=== PATIENT | male | born 1975 | race Caucasian/White ===

== ENCOUNTER → 2019-01-27 | Outpatient (CLI) | payer OTHER ==
--- NOTE | 2019-01-28 03:34 | REP ---
Clinical: Sacroiliac joint arthropathy. Technique: Single supine view of the pelvis. Findings: The bilateral sacroiliac joints are relatively symmetric and age appropriate. Subtle periarticular sclerosis (left greater than right) cannot definitively be excluded. No effusion or osteophyte formation noted. Remainder of the osseous structures, joint spaces and surrounding soft tissues normal. Impression: Essentially age-appropriate examination although very subtle increase sclerosis to the sacroiliac joints cannot be excluded Electronically Signed by Bryan Esposito MD 01/28/2019 03:25 A
== END ==
LOC: M LAB 16:16
PROVIDERS: ATTEND Internal Medicine Rheumatology
DX: M47.818 Spondylosis without myelopathy or radiculopathy, sacral and sacrococcygeal region (principal)
CPT/HCPCS: 72170; G0463

== ENCOUNTER → 2019-02-09 | Outpatient (CLI) | payer OTHER ==
--- NOTE | 2019-02-10 09:24 | REP ---
Sacroiliac joint MRI study. Without contrast: History: Arthropathy of the bilateral sacroiliac joints. Comparison radiograph of the pelvis is from January 27, 2019. Technique: Sagittal, axial, and oblique coronal imaging planes utilized. T1 and T2-weighted scans were obtained with and without fat saturation through the sacrum and SI joints. MRI findings: Cortical and medullary bone signal intensity are normal throughout the sacrum, coccyx, and visualized bony pelvic structures. No presacral or retro sacral edema or fluid collection is seen. Sacroiliac iliac joints appear intact bilaterally. No fluid or marrow edema is seen to suggest inflammation. No perirectal fat infiltration is seen. Seminal vesicles and visualized prostate are unremarkable. The visualized lumbosacral thecal sac is unremarkable. There is some degenerative disc disease at L5-S1. There is mild facet hypertrophy at L5-S1 bilaterally as well. Impression: There is no evidence of sacroiliac arthropathy by MRI. Degenerative disc disease and facet arthropathy at L5-S1. Otherwise negative. Electronically Signed by Con Antonio MD 02/10/2019 03:28 P
== END ==
LOC: M RAD 17:41
PROVIDERS: ATTEND Internal Medicine Rheumatology
DX: M47.818 Spondylosis without myelopathy or radiculopathy, sacral and sacrococcygeal region (principal)

== ENCOUNTER 2020-11-06 18:22 | Emergency (ER) | payer OTHER ==
[~2020-11-06] VITALS: Ht 185.4 cm; Wt 92.4 kg
[2020-11-06] MEDS ORDERED: XANA0.5T PO (20:44)
[2020-11-06] MEDS ORDERED: BUSP30TA PO (20:47)
[2020-11-06 21:06] VITALS: BP 115/81
--- NOTE | 2020-11-07 19:49 | ECGEPIP ---
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
== END 2020-11-06 21:08 | disposition home or self-care (01) ==
LOC: M ED 18:22
DX: F41.0 Panic disorder [episodic paroxysmal anxiety] (principal); Z79.899 Other long term (current) drug therapy

== ENCOUNTER 2020-12-17 18:17 | Emergency (ER) | payer OTHER ==
[~2020-12-17] VITALS: Ht 185.4 cm; Wt 89.3 kg
[~2020-12-17 18:17] MED LIST: BUSP30TA PO; XANA0.5T PO
[2020-12-17] MEDS ORDERED: CELE10TA PO (18:25)
[2020-12-17 18:56] LABS: BASO % 0.4 % (0.0-1.0); EOS # 0.1 10^3/uL (0.0-0.5); EOS % 1.4 % (0.0-3.0); HEMATOCRIT 43.3 % (42.0-52.0); HEMOGLOBIN 14.8 g/dl (13.5-17.5); LYMPH # 2.8 10^3/uL (1.5-5.0); LYMPH % 27.3 % (24.0-44.0); MEAN CORPUSCULAR HEMOGLOBIN 28.9 pg (27.0-33.0); MEAN CORPUSCULAR HGB CONC 34.2 g/dl (32.0-36.5); MEAN CORPUSCULAR VOLUME 84.6 fl (80.0-96.0); MONO # 0.6 10^3/uL (0.0-0.8); MONO % 5.5 % (2.0-8.0); NEUTROPHILS # 6.7 10^3/uL (1.5-8.5); NEUTROPHILS % 64.7 % (36.0-66.0); PLATELET COUNT, AUTOMATED 369 10^3/uL (150-450); RED BLOOD COUNT 5.12 10^6/uL (4.30-6.10); WHITE BLOOD COUNT 10.4 10^3/uL (4.0-10.0)
--- NOTE | 2020-12-17 19:13 | REP ---
INDICATION: CHEST PAIN. COMPARISON: None. TECHNIQUE: Two portable AP views of the chest performed. FINDINGS: There is no acute infiltrate or pulmonary edema. Lungs are clear. The heart is not significantly enlarged. The mediastinal silhouette is unremarkable. The visualized osseous structures are intact. IMPRESSION: No acute pulmonary disease. <Electronically signed by Shawn Rdz > 12/17/20 [id number]
[2020-12-17 19:22] LABS: ALBUMIN 3.8 GM/DL (3.2-5.2); ALT/SGPT 40 U/L (12-78); BILIRUBIN,DIRECT < 0.1 MG/DL (0.0-0.2); BILIRUBIN,TOTAL 0.2 MG/DL (0.2-1.0); BLOOD UREA NITROGEN 18 MG/DL (7-18); CALCIUM LEVEL 8.9 MG/DL (8.5-10.1); CARBON DIOXIDE LEVEL 28 MEQ/L (21-32); CHLORIDE LEVEL 106 MEQ/L (98-107); CK-MB VALUE MASS 1.7 NG/ML (<3.6); CPK CREATINE PHOSPHOKINASE 176 U/L (39-308); CREATININE FOR GFR 1.28 MG/DL (0.70-1.30); GLOMERULAR FILTRATION RATE > 60.0 (>60); GLUCOSE, FASTING 116 MG/DL (70-100); LIPASE 80 U/L (73-393); MB/CK RELATIVE INDEX 0.97 (< OR =4); POTASSIUM SERUM 3.8 MEQ/L (3.5-5.1); SODIUM LEVEL 140 MEQ/L (136-145); TOTAL PROTEIN 7.2 GM/DL (6.4-8.2); TROPONIN I 0.55 NG/ML (< 0.10)
[2020-12-17] MEDS ORDERED: ASPIRIN 81 MG CHEW TABLET PO ONE (19:35)
[2020-12-17] MEDS ORDERED: HEPARIN DRIP 25,000 UNITS in IV 1 EA IV SCH (20:10)
[2020-12-17] MEDS ORDERED: CLOPIDOGREL 300 MG TAB (PLAVIX) PO ONE (20:10)
[2020-12-17] MEDS ORDERED: HEPARIN SOD (PORCINE) 5000UNITS/ML 1ML VIAL/SYRINGE IV ONE (20:10)
[2020-12-17] MEDS ORDERED: NITROGLYCERIN 0.4 MG SUBL TABLET SL PRN (21:10)
[2020-12-17 21:13] VITALS: BP 170/76
[2020-12-17 21:36] LABS: RSV AMPLIFICATION NEGATIVE (NEGATIVE)
[2020-12-17 22:09] VITALS: BP 132/60
--- NOTE | 2020-12-18 20:02 | ECGEPIP ---
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
== END 2020-12-17 22:13 | disposition short-term general hospital (02) ==
LOC: M ED 18:17
DX: I21.4 Non-ST elevation (NSTEMI) myocardial infarction (principal); R00.0 Tachycardia, unspecified; F41.9 Anxiety disorder, unspecified; F17.220 Nicotine dependence, chewing tobacco, uncomplicated; Z79.899 Other long term (current) drug therapy
CPT/HCPCS: 71045; 80048; 80076; 82550; 82553; 83690; 84484; 85025; 85379; 87631; 93005; 93041; 94760; 96365; 99285; J1644

== ENCOUNTER 2020-12-20 10:42 | Emergency (ER) | payer OTHER ==
[~2020-12-20] VITALS: Ht 185.4 cm; Wt 90.6 kg
[~2020-12-20 10:42] MED LIST changes: +CELE10TA PO
[2020-12-20 11:16] LABS: BASO % 0.4 % (0.0-1.0); EOS % 0.4 % (0.0-3.0); HEMATOCRIT 45.3 % (42.0-52.0); HEMOGLOBIN 15.5 g/dl (13.5-17.5); LYMPH # 1.6 10^3/uL (1.5-5.0); LYMPH % 16.3 % (24.0-44.0); MEAN CORPUSCULAR HEMOGLOBIN 28.7 pg (27.0-33.0); MEAN CORPUSCULAR HGB CONC 34.2 g/dl (32.0-36.5); MEAN CORPUSCULAR VOLUME 83.9 fl (80.0-96.0); MONO # 0.8 10^3/uL (0.0-0.8); MONO % 7.7 % (2.0-8.0); NEUTROPHILS # 7.4 10^3/uL (1.5-8.5); NEUTROPHILS % 74.5 % (36.0-66.0); PLATELET COUNT, AUTOMATED 367 10^3/uL (150-450); WHITE BLOOD COUNT 9.9 10^3/uL (4.0-10.0)
[2020-12-20 11:45] LABS: BLOOD UREA NITROGEN 18 MG/DL (7-18); CALCIUM LEVEL 9.2 MG/DL (8.5-10.1); CARBON DIOXIDE LEVEL 29 MEQ/L (21-32); CHLORIDE LEVEL 103 MEQ/L (98-107); CPK CREATINE PHOSPHOKINASE 98 U/L (39-308); CREATININE FOR GFR 1.07 MG/DL (0.70-1.30); GLOMERULAR FILTRATION RATE > 60.0 (>60); GLUCOSE, FASTING 102 MG/DL (70-100); MB/CK RELATIVE INDEX 1.02 (< OR =4); POTASSIUM SERUM 4.1 MEQ/L (3.5-5.1); SODIUM LEVEL 138 MEQ/L (136-145); TROPONIN I 0.02 NG/ML (< 0.10)
--- NOTE | 2020-12-20 11:57 | REP ---
INDICATION: CHEST PAIN. COMPARISON: 12/17/2020. TECHNIQUE: Single portable AP view of the chest was performed. FINDINGS: There is no acute infiltrate or pulmonary edema. Lungs are clear. The heart is not significantly enlarged. The mediastinal silhouette is unremarkable. The visualized osseous structures are intact. IMPRESSION: No acute pulmonary disease. <Electronically signed by Shawn Rdz > 12/20/20 [id number]
[2020-12-20 13:41] LABS: CK-MB VALUE MASS < 1.0 NG/ML (<3.6); CPK CREATINE PHOSPHOKINASE 87 U/L (39-308); MB/CK RELATIVE INDEX 1.15 (< OR =4); TROPONIN I 0.02 NG/ML (< 0.10)
[2020-12-20 14:46] VITALS: BP 113/63
--- NOTE | 2020-12-21 18:56 | ECGEPIP ---
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
--- NOTE | 2020-12-21 18:57 | ECGEPIP ---
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
== END 2020-12-20 14:48 | disposition home or self-care (01) ==
LOC: M ED 10:42
DX: F41.0 Panic disorder [episodic paroxysmal anxiety] (principal); F32.9 Major depressive disorder, single episode, unspecified; F43.10 Post-traumatic stress disorder, unspecified; F17.220 Nicotine dependence, chewing tobacco, uncomplicated; Z79.899 Other long term (current) drug therapy

== ENCOUNTER 2021-02-21 17:00 | Emergency (ER) | payer OTHER ==
[~2021-02-21] VITALS: Ht 185.4 cm; Wt 88.3 kg
--- OUTSIDE RECORDS SUMMARY | 2021-02-21 17:09 | CCD ---
Author Author [facility] Organization [facility] Address Unknown Phone Unavailable Care Team Providers Care Drug And Alcohol Counsellor Name Role Phone Zenon CURIEL JR, MD Unavailable Unavailable Zenon CURIEL JR, MD Unavailable Unavailable Zenon CURIEL JR, MD Unavailable Unavailable Zenon CURIEL JR, MD Unavailable Unavailable Zenon CURIEL JR, MD Unavailable Unavailable Zenon CURIEL JR, MD Unavailable Unavailable Zenon CURIEL JR, MD Unavailable Unavailable Zenon CURIEL JR, MD Unavailable Unavailable Zenon CURIEL JR, MD Unavailable Unavailable Zenon CURIEL JR, MD Unavailable Unavailable Zenon CURIEL JR, MD Unavailable Unavailable Zenon CURIEL JR, MD Unavailable Unavailable Zenon CURIEL JR, MD Unavailable Unavailable Zenon CURIEL JR, MD Unavailable Unavailable Zenon CURIEL JR, MD Unavailable Unavailable Zenon CURIEL JR, MD Unavailable Unavailable Zenon CURIEL JR, MD Unavailable Unavailable Zenon CURIEL JR, MD Unavailable Unavailable Zenon CURIEL JR, MD Unavailable Unavailable Zenon CURIEL JR, MD Unavailable Unavailable Zenon CURIEL JR, MD Unavailable Unavailable Zenon CURIEL JR, MD Unavailable Unavailable Zenon CURIEL JR, MD Unavailable Unavailable Zenon CURIEL JR, MD Unavailable Unavailable Zenon CURIEL JR, MD Unavailable Unavailable Zenon CURIEL JR, MD Unavailable Unavailable Zenon CURIEL JR, MD Unavailable Unavailable Zenon CURIEL JR, MD Unavailable Unavailable Zenon CURIEL JR, MD Unavailable Unavailable Zenon CURIEL JR, MD Unavailable Unavailable Zenon CURIEL JR, MD Unavailable Unavailable Zenon CURIEL JR, MD Unavailable Unavailable CARZenon GROVER JR, MD Unavailable Unavailable CARZenon GROVER JR, MD Unavailable Unavailable CARHART Zenon LIU MD Unavailable Unavailable CARHART Zenon LIU MD Unavailable Unavailable CARKRYSTALT Zenon LIU MD Unavailable Unavailable CARKRYSTALT Zenon LIU MD Unavailable Unavailable CARHART Zenon LIU MD Unavailable Unavailable CARZenon GROVER JR, MD Unavailable Unavailable CARZenon GROVER JR, MD Unavailable Unavailable CARZenon GROVER JR, MD Unavailable Unavailable CARZenon GROVER JR, MD Unavailable Unavailable CARZenon GROVER JR, MD Unavailable Unavailable CARZenon GROVER JR, MD Unavailable Unavailable CARZenon GROVER JR, MD Unavailable Unavailable CARZenon GROVER JR, MD Unavailable Unavailable CARZenon GROVER JR, MD Unavailable Unavailable CARZenon GROVER JR, MD Unavailable Unavailable CARZenon GROVER JR, MD Unavailable Unavailable CARZenon GROVER JR, MD Unavailable Unavailable CARZenon GROVER JR, MD Unavailable Unavailable CARZenon GROVER JR, MD Unavailable Unavailable CARZenon GROVER JR, MD Unavailable Unavailable CARZenon GROVER JR, MD Unavailable Unavailable CARZenon GROVER JR, MD Unavailable Unavailable CARZenon GROVER JR, MD Unavailable Unavailable Zenon CURIEL JR, MD Unavailable Unavailable CARZenon GROVER JR, MD Unavailable Unavailable CARZenon GROVER JR, MD Unavailable Unavailable CARZenon GROVER JR, MD Unavailable Unavailable CARZenon GROVER JR, MD Unavailable Unavailable CARZenon GROVER JR, MD Unavailable Unavailable CARZenon GROVER JR, MD Unavailable Unavailable CARZenon GROVER JR, MD Unavailable Unavailable CARZenon GROVER JR, MD Unavailable Unavailable CARZenon GROVER JR, MD Unavailable Unavailable CARZenon GROVER JR, MD Unavailable Unavailable CARZenon GROVER JR, MD Unavailable Unavailable CARZneon GROVER JR, MD Unavailable Unavailable CARZenon GROVER JR, MD Unavailable Unavailable CARZenon GROVER JR, MD Unavailable Unavailable CARZenon GROVER JR, MD Unavailable Unavailable CARZenon GROVER JR, MD Unavailable Unavailable CARZenon GROVER JR, MD Unavailable Unavailable CARZenon GROVER JR, MD Unavailable Unavailable CARZenon GROVER JR, MD Unavailable Unavailable CARZenon GROVER JR, MD Unavailable Unavailable CARZenon GROVER JR, MD Unavailable Unavailable CARZenon GROVER JR, MD Unavailable Unavailable CARZenon GROVER JR, MD Unavailable Unavailable CARZenon GROVER JR, MD Unavailable Unavailable CARHART JR, L CLEMENTE MD Unavailable Unavailable CARHART JR, L CLEMENTE MD Unavailable Unavailable CARHART JR, L CLEMENTE MD Unavailable Unavailable CARHART JR, L CLEMENTE MD Unavailable Unavailable CARHART JR, L CLEMENTE MD Unavailable Unavailable CARHART JR, L CLEMENTE MD Unavailable Unavailable PAULRAJ, YOLANDA Unavailable Unavailable Re-disclosure Warning The records that you are about to access may contain information from federally-assisted alcohol or drug abuse programs. If such information is present, then the following federally mandated warning applies: This information has been disclosed to you from records protected by federal confidentiality rules (42 CFR part 2). The federal rules prohibit you from making any further disclosure of this information unless further disclosure is expressly permitted by the written consent of the person to whom it pertains or as otherwise permitted by 42 CFR part 2. A general authorization for the release of medical or other information is NOT sufficient for this purpose. The Federal rules restrict any use of the information to criminally investigate or prosecute any alcohol or drug abuse patient.The records that you are about to access may contain highly sensitive health information, the redisclosure of which is protected by Article 27-F of the [facility] Public Health law. If you continue you may have access to information: Regarding HIV / AIDS; Provided by facilities licensed or operated by the [facility] Office of Mental Health; or Provided by the [facility] Office for People With Developmental Disabilities. If such information is present, then the following [facility] mandated warning applies: This information has been disclosed to you from confidential records which are protected by state law. State law prohibits you from making any further disclosure of this information without the specific written consent of the person to whom it pertains, or as otherwise permitted by law. Any unauthorized further disclosure in violation of state law may result in a fine or residential sentence or both. A general authorization for the release of medical or other information is NOT sufficient authorization for further disc losure. Allergies and Adverse Reactions Type Description Substance Reaction Status Data Source(s ) Propensity to adverse reactions NO KNOWN ALLERGIES NO KNOWN ALLERGIES [facility] Family History Family Member Name Family Member Gender Family Member Status Date o f Status Description Data Source(s) Unknown Male Problem [facility] ([facility]) Encounters Encounter Providers Location Date Indications Data Source(s ) Inpatient Attender: CLEMENTE SARAVIA dmitter: CLEMENTE CURIEL JRReferrer: YOLANDARADHA PATTERSON [id number] 12/17/2020 12:00:00 AM EDT - 12/19/2020 04:22:00 PM EDT [facility] Patient discharged. Medications No Information Insurance Providers Payer name Policy type / Coverage type Policy ID Covered libertarian ID Covered libertarian's relationship to segura Policy Segura Plan Information [employer] [id number] SP [id number] U [id number] Self [id number] [facility] HUMAN [id number] SP [id number] [facility] [id number] Self [id number] [place] [employer] [employer] [id number] Self [id number] [facility] - O/P [id number] Problems, Conditions, and Diagnoses No Information Surgeries/Procedures No Information Results ID Date Data Source [id number] 12/23/2020 01:38:10 PM EDT [facility] Name Value Range Interpretation Code Description Data Karina rce(s) Supporting Document(s) Discharge Summary [facility] [id number] [facility] [file] [id number] ID Date Data Source [id number] [facility] Interpretation Code Description Data Karina rce(s) Supporting Document(s) Heparin unfractionated [Units/volume] in Platelet poor plasma by Chromogenic method 0.18 [facility] Data Source [id number] [facility] Value Range Interpretation Code Description Data Karina rce(s) Supporting Document(s) Heparin unfractionated [Units/volume] in Platelet poor plasma by Chromogenic method 0.45 U/ml [facility] ID Date Data Source [id number] 12/19/2020 04:15:01 AM [facility] Value Range Interpretation Code Description Data Karina rce(s) Supporting Document(s) Prothrombin time (PT) 13.1 s 11.6-14.0 [facility] INR in Platelet poor plasma by Coagulation assay 1.03 [facility] Routine intensity oral anticoagulation I NR is typically 2.0-3.0. Target INR must be clinically individualized. ID Date Data Source [id number] 12/18/2020 09:05:54 PM [facility] Value Range Interpretation Code Description Data Karina rce(s) Supporting Document(s) Prothrombin time (PT) 13.5 s 11.6-14.0 [facility] INR in Platelet poor plasma by Coagulation assay 1.07 [facility] Routine intensity oral anticoagulation I NR is typically 2.0-3.0. Target INR must be clinically individualized. ID Date Data Source [id number] 12/18/2020 09:05:54 PM [facility] Value Range Interpretation Code Description Data Karina rce(s) Supporting Document(s) Heparin unfractionated [Units/volume] in Platelet poor plasma by Chromogenic method 0.59 U/ml [facility] ID Date Data Source [id number] 12/18/2020 04:48:38 PM EDT [facility] Name Value Range Interpretation Code Description Data Karina rce(s) Supporting Document(s) History and Physical [facility] ITAYFj3kYzFPQmGf73/BTHcbMWLlg0ElGKvhUUe4JBkaLFXaJ2PkHOC1pC2bQSL8JSgHPaRyCaVpJVFh lbm [file] AgICAgICAgICAgICAgICAgICAgICAgICAgICAgICAgICAgICAgICAgICAgICAgICAgICAgICAgICAgIC AgICAgICAgICAgICAgICAgICAgDQogICAgICAgICAgICAgICAgICAgICAgICAgICAgICAgICAgICAgIC AgICAgICAgICAgICAgICAgICAgICAgICAgICAgICAg ICAgICAgICAgICAgICAgICAgICAgICAgICAgICAgDQogICAgICAgICAgICAgICAgICAgICAgICAgICAg ICAgICAgICAgICAgICAgICAgICAgICAgICAgICAgICAgICAgICAgICAgICAgICAgICAgICAgICAgICAg ICAgICAgICAgICAgDQogICAgICAgICAgICAgICAgIC AgICAgICAgICAgICAgICAgICAgICAgICAgICAgICAgICAgICAgICAgICAgICAgICAgICAgICAgICAgIC AgICAgICAgICAgICAgICAgICAgICAgDQogICAgICAgICAgICAgICAgICAgICAgICAgICAgICAgICAgIC AgICAgICAgICAgICAgICAgICAgICAgICAgICAgICAg ICAgICAgICAgICAgICAgICAgICAgICAgICAgICAgICAgDQogICAgICAgICAgICAgICAgICAgICAgICAg ICAgICAgICAgICAgICAgICAgICAgICAgICAgICAgICAgICAgICAgICAgICAgICAgICAgICAgICAgICAg ICAgICAgICAgICAgICAgDQogICAgICAgICAgICAgIC AgICAgICAgICAgICAgICAgICAgICAgICAgICAgICAgICAgICAgICAgICAgICAgICAgICAgICAgICAgIC AgICAgICAgICAgICAgICAgICAgICAgICAgDQogICAgICAgICAgICAgICAgICAgICAgICAgICAgICAgIC AgICAgICAgICAgICAgICAgICAgICAgICAgICAgICAg ICAgICAgICAgICAgICAgICAgICAgICAgICAgICAgICAgICAgDQogICAgICAgICAgICAgICAgICAgICAg ICAgICAgICAgICAgICAgICAgICAgICAgICAgICAgICAgICAgICAgICAgICAgICAgICAgICAgICAgICAg ICAgICAgICAgICAgICAgICAgDQogICAgICAgICAgIC AgICAgICAgICAgICAgICAgICAgICAgICAgICAgICAgICAgICAgICAgICAgICAgICAgICAgICAgICAgIC PzPEOaRHBtJNHgDTDmGBCnHRIrNGUgPTLsLDQrTIa6M0ptRJWxGZJuEB0zWEf3Wv5+HAoRWrEmNKJ9zd JdwF8RHP0nj0KpFZrvRWYey3HjBSr0FJ5YAGRoKHcj VP7CXDcoez5CPSNuFGBduERAt8jcPcXbXKE4SUTtHvtdNF7ZSCCsJ8iyoeIaKDVtUKGTWVrcYHKIIFmo RWFZVJLdPBSfDuQzCFwsLE4Yv7BjtUN7FWq+Ap4FKP6at9VkHCzsVNMbDO8gxg9UPGxCEvTbK6ZzbkC5 FMDhROGcFv3YVGCgMBZwxMDpFJFaSXIQAlGqF3NsnW 44GCGUBi1+DLwihdVzHbrAKgLhLLCvf3NeTSy7WC9FEPInGMv8kYWrFXLGAUS1LS3txcQdckDkIE9zqY JkVZ8HXrRzWBTqKT9sQl0fMDQhGLYpOaSaNNTCFA7ODIWhHXFoqGSwXTFqPWCMFF2DUJooLPY6PIGcjn FgcOScAWhkHG0VQPIeslZqApnfTVBSEBp+Ax4CMO5x a3PsTGwrUsMaFF0nvi5SDIsYWnMrD6R3dXZfC5Gymb96IG7VkAU0cBWgDC8WpS6iSR9Ye0SfRJOhCjKb YJVzCMNyAGAyATJlNuCbFF1SWBWfDiJugNUuWPZfRcXzYSCqYDP8KXkrBU8KDPCsMLB7AW0OGH5QNvti A3XFXYyNcIdpTIL4OkWUW46SKPHHJV5YRZTQWWltQL G2nwGjqmWhdqeVCpYqQBKQF62GQSJFMWA+PiANCj4+EBaybzHvAcvPWrXnZKSrm6QhPIu5HK5QLKYpLW aoNA7MSKEwdN9yPBosQP5TSnOrBkQaAOIZRsAjP06aqSOoDEm3Y9IvNxQaDLSgDmuvQVHbQDvqSkUiIM MgWyBdDQogID4+ID4+ZKzjAF6AYNpzqgMaSFZbQe9A GYNjJQIkSQ6aTMKsCKOqI7L2eLyoBPCGLrXrV3xnoszpPB9pPZTdT061sNgehbInPVY8UZQkTw6MWEZr ARB2RIZogQPkFpiyEBTVZGiiTK6ReNWtJGG8bA6iCPodSWHdWKIiQ2lQQnYzrPprJF57mKoviwTafFIy DQo+Nm9DZH6ax2NoYPj6coOyJWecQWTvUXdjRGKjGV HhSTLkRPM4DRK9ICSOAnIsTHHpNCNoWDzmSZFnHVOfer2MGDIlZLOvWPK2EhXzLUXjJWRkSNclSBOqTP WwYWSiNZMdEGAnFK9JVgPpSDUfEXGgFDxeRYSrFSObpt5WSYRwQHSmPVF4TjWvWJVwVRHgDEilBRToOD U1BfkqXOCxWFCbWW8IAaGqSPGiVAf7OsywFNSjYPZz fb4PCOPqZSCtFwf6ZiEpEXTbKHEuLEcpPSDeSDAuHYR9FLAdTASzFB1QYjLhQSUyOAItSnBqXRUjBZAy cs6BAEWfGQBdESZ9TtXjOROgBNYmCIveQSIoNJHtDeJ1CLYrTSZiNT0ZLvNdJOBbQXJxTOalSMLqDTXl us7KORHfFOYeVUC3VYOtFVIuDVPvLKhkORYnATH8VI b8PGFqHUVlRG6CSvZtVSAoMTQ9EGwaSCEcXEVcfo1MUGZwRNHcHhVdWIJcPITgOEKyLMwsGQSiBOO2TD PlSQWaJBMtFZ1MJmUqPZAaBCttAAawTITzWIXwrv6GFWXaDMUoKfx1DHMdPDMzMPXbUIklXYEeJWU7LG O5GZLoBDAiOR4CHeEfGMCySJqtCFemRKXyNAXzas3C EKJvAVEbBRegFfGeHMEaSCWpULtdHMIsTHRcAIInAZWcIYRuNC2QMxNeBIXcDwVkPqAtJXCzESUnis6E DALmPLRxOUU9LXGpBRRzRAGgJTluDEUeXCUqIjS2WIAwUDFxRI7NDiRhKJSsLpOwOfNnDKHlEPOoug9I MDAwMDAzMjUxOSAwMDAwMCBuDQowMDAwMDMyNTkwID IbMJWjQR4EYyTpQROvZqG5BSonWEYcQUDgnj1WvNQoiWdemh4TIOlFTh0UhQcnLHLpTLymCb1tgOFhHD UiMPCGSr0MayQgUZPtXLWZMUglTGZrITOaNbpzXalgV9R1TELyEWVxM8KwPBegQSMxLpLqXtXcDiE7NP XwI2GuPVXdZLvmBZQ8UiEuRsWzNZA2FEY3EUYiCYY+ OU4rLKy+By8Ra0HqtfX9djMlXKcaBtB2FB9FADGPQ3GXBd== ID Date Data Source [id number] [facility]43[facility] Value Range Interpretation Code Description Data Karina rce(s) Supporting Document(s) Cardiactroponin T pnl SerPlHS 70 ng/L <22 H [facility] ID Date Data Source [id number] 12/18/2020 01:33:49 [facility] Value Range Interpretation Code Description Data Karina rce(s) Supporting Document(s) Heparin unfractionated [Units/volume] in Platelet poor plasma by Chromogenic method 0.19 U/ml [facility] ID Date Data Source [id number] [facility]2020 10:[facility] Range Interpretation Code Description Data Karina rce(s) Supporting Document(s) EKG [facility] IUDVAc3cZuVKIkRhn0IrKwHgKDBlRS5gakd5Y0V4kQLgU6CfdAPbt8rqT9MeE6LaXNIxFWMNWR3OfQLu jb2 [file] /dv/4mP3w/f+2Bdfvv/t6ye8++wf/4sPSdsfevvq/buvP//q4C4rY848+/TrTz//inez//M27n/7TKr11 /9Nnf/rh37/78x+//cPbv/0u12vqnw/9N3/+87fffP/3b7/10jshsa7+7V//m8S//n1ex415h06N/cWi OY4KBfMyb/i0y01L54isf7+t+h//+Iu/sC8v3SKdhj A/gp660A1+HtyuX/4nrGxa1ITrH5r/MICudjXnq/EKd6kW9ZasypoOw1UblT89lFej73+8Yu8x0v+8// shx81cq4O0brlkv9//92ahL4943ePp/eb9p//0o1Dbj/7tUPzL+/+K2MM1/3WtCz+nxy+/IsOrgskBB0 QHUkrWai81m3/+w9ufv/nrtz/02akd9B9M9hbd+iMP 0PIeTIb+9Ns3+NX7t+9++Ou3f/7ff/Pj8+s3nz/++fzlubE0f972qn21/Ye3P/zH67d/75cqgja4w7rd T74+v+LB/vnjL/754++Lh63lIksJhS/S2i4nGWlPueFeoV/85Mc/sUgwmB2k/4uf/omXfsZs6c//+PbN //b3O5365DbZBtDzu557/gd6TDJDptg0aP9yu//6dz /59D4Ov/3m+x8d3/kj9LNv/uP33/zlu29++Mn/b6ZH++6Hn/7/cyVN//7f/vZ/Hwrf/+lPf/zkul/Sfv KRHe9v/jN0I7K9Gr00O1ic//7Ax29//z9/+O73r5/5bEij60h5D53cOMSiq0/56+us+8Mnn/404WiBT9 36+Rd/u9/1wF6Bf/ht39838eSWT5qq6m+i//9H7tcO fRt1Y/zqm//x7Zu8/ciy01xRHSyx85nl4i6p7WHb6s5ViGc274sWi+Om7h9PhR/f/+rd+0/eVmOCVXbw 088++/J3X7w+2+4KB+Mhn8C64A8HoHY83PlweiUayPVwBO4ZZA8yq0AqDwN7QKOcv3DrCApyGEx8uSCh VXgbqzJjy7JppolxK6Dff8ErOsSvVMIbGgAlLnz1FU MaWrL7hEZoWdEiTIOeK0GzAZWhZlL9MwEyITEDLG4FLOQsufXmWpNpTAY+QsZtKF1bfpleKQUfb3MpAX whUFmlVREpG2G6eLvqUDLeW8SfjV01EEMdM5UaxhK2VNK3NSVqIsWoUQJqaIRpONZcAHE+DsWrPC4apk nxRMKjj3CzHVecCHJ6qY4uERvPLGRSVJsRGVzfWxV3 s13vgjVHPMCbNWFzRP3UlpSxvIhnqbZnjPPxKIW1WaJpICI8MCUtRXYvMIFJGHXjYKEiTYRuBTTqG6Ik vMcyEEhJLBXGYLgUWZkeKpZqs4O9FNWatiRLPBXWSIyjPlZTM20bJhr0EWM0JSyfH9C6TggmB6GtDP4F N1NsHTElJFZWFVPxdgZoHS7AxpQkvG0tBVzCLHWPXR xHNEueYzI9w32ktoCFXSUmOSBsKMeiDUHeVKMlWTAtUMHdDHQhAGOoFWHvZA1MD3LjVTQrOXXMPOL6r7 RdAXNsyivwfmnfBj2dvwAxIkm+JfwpEHZfn4DjSGfbP6Z0oFHqC8AvO3ShCD5IpVGdWFpgIIHgRQZoLE PfM148ubCsCJ7+DE3xd5XlTwjiEEZGUVVcXWZlIBKt UNM1YvKtMJWpZHWtVCBwGaR4EoYeHrKNCLXdDJC9NtX1ZiJuARJhFSRsHTtsYMQpKBFcCSI4DVCfCHQq FB4oIuPqXNYwYiN1FYHtAHKpAKLvuqYKSLZwZZSfKLKaAJO9BTLeOSOzCCaiGUPpBOSjIID7OJPbSYQo BN7aIdMmEYYxDZRlJvrwNQXiTQBzwxMXGXKmWIFlZQ C4FeXyVXCuAYXnLNhvJKZeNFSeEyi9LQGdDWGrVR8mShWgQPJdCRT0JLmeDBHgEIWutgXHPODqOUHvOK ThScPpRRLeTCNhUQsvOMHmSAHqKqPvGEMxPOXnGK9fUwXhIHVnQOH6BYXiMDTaMFOmyvBGSHQlWDBpXQ h8APEjZMQyXGAmYLziCQJnDJWmGWI5PAYtLUBdBG6c FgHdOVFmDGLfJPDlATBgHAEsvtQWONRhIZUxNVX1WJBdKXBwSZRvAYyvNREfIZRfZyz4ZNIpVPJsSQ8e EkGhRKFaXXS5HEExEUHmKMWncuJTLSOgGRR1WewcINPnXQVzTLHzTTymDWZiWFSgCaU3MORwQVDnRV9k CvVdSKOwUOE1TaAlFOHeLPLehtUHWYEcDPVqTYP5Ls DsMAMsSWFkSZgoXFUdBNUgPLOqPER8DES8WXLpRbZeDNyuXJMEKTmKI3TokrGcRaBEF8mxCu8bXaHhVI VTW0Yxg9QuKPWiEHAOVw7+DoF5NYA1rJRnTmn9DfGcBjhtZBZCYe== ID Date Data Source [id number] 12/18/2020 04:38:31 AM EDT [facility] Name Value Range Interpretation Code Description Data Karina rce(s) Supporting Document(s) Cardiactroponin T pnl SerPlHS 89 ng/L <22 H [facility] ID Date Data Source [id number] 12/18/2020 04:19:[facility] Value Range Interpretation Code Description Data Karina rce(s) Supporting Document(s) Leukocytes [#/volume] in Blood by Automated count 11.5 10*3/uL 4-10 H [facility] Erythrocytes [#/volume] in Blood by Automated count 5.03 10*6/uL 4.6- 6.1 [facility] Hemoglobin [Mass/volume] in Blood 14.4 g/dL 13.5-18 [facility] Hematocrit [Volume Fraction] of Blood by Automated count 42.6 % 4 1-53 [facility] Erythrocyte mean corpuscular volume [Entitic volume] by Auto mated count 84.6 fL 80-96 [facility] Erythrocyte mean corpuscular hemoglobin [Entitic mass] by Automated count 28.5 pg 27-33 [facility] Erythrocyte mean corpuscular hemoglobin concentration [Mass/volume] by Automated count 33.7 g/dL 32.0-36.0 [facility] Erythrocyte distribution width [Ratio] by Automated count 13.5 % 11.5-14.5 [facility] Platelets [#/volume] in Blood by Automated count 355 10*3/uL 150-400 [facility] ID Date Data Source [id number] 12/18/2020 04:19:[address] [facility] Value Range Interpretation Code Description Data Karina rce(s) Supporting Document(s) Prothrombin time (PT) 13.0 s 11.6-14.0 [facility] INR in Platelet poor plasma by Coagulation assay 1.02 [facility] Routine intensity oral anticoagulation I NR is typically 2.0-3.0. Target INR must be clinically individualized. ID Date Data Source [id number] 12/18/2020 04:19:[address] [facility] Value Range Interpretation Code Description Data Karina rce(s) Supporting Document(s) Heparin unfractionated [Units/volume] in Platelet poor plasma by Chromogenic method [facility] ID Date Data Source [id number] 12/18/2020 01:14:[facility] Value Range Interpretation Code Description Data Karina rce(s) Supporting Document(s) SARS-CoV-2 RNA 2019 nCoV Real-Time RT-PCR: NOT DETECTED [facility] This lab was ordered by [facility] and reported by [facility]. 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 [facility] Patient has symptoms related to condition [facility] When did you start to experience these symptoms [Date and time] [Phen X] [facility] Patient was hospitalized because of this condition [facility] patient was admitted to ICU for [facility] Patient resides in a congregate care setting [facility] status [facility] ID Date Data Source [id number] 12/18/2020 02:09:31 AM [facility] Value Range Interpretation Code Description Data Karina rce(s) Supporting Document(s) Cardiactroponin T pnl SerPlHS 97 ng/L <22 H [facility] ID Date Data Source [id number] 12/18/2020 02:09:31 AM [facility] Value Range Interpretation Code Description Data Karina rce(s) Supporting Document(s) Magnesium [Mass/volume] in Serum or Plasma 2.2 mg/dL 1.6-2.6 [facility] ID Date Data Source [id number] 12/18/2020 02:09:31 AM [facility] Value Range Interpretation Code Description Data Karina rce(s) Supporting Document(s) Phosphate [Mass/volume] in Serum or Plasma 4.6 mg/dL 2.5-4.5 H [facility] ID Date Data Source [id number] 12/18/2020 02:09:31 AM [facility] Value Range Interpretation Code Description Data Karina rce(s) Supporting Document(s) Cholesterol [Mass/volume] in Serum or Plasma 166 mg/dL <200 [facility] Triglyceride [Mass/volume] in Serum or Plasma 144 mg/dL <150 [facility] Cholesterol in HDL [Mass/volume] in Serum or Plasma 40 mg/dL >40 L [facility] Cholesterol in LDL [Mass/volume] in Serum or Plasma by calcu lation 97 mg/dL <100 [facility] Cholesterol in VLDL [Mass/volume] in Serum or Plasma by calc ulation 29 mg/dl 16-42 [facility] Cholesterol non HDL [Mass/volume] in Serum or Plasma 126 mg/dL <130 [facility] ID Date Data Source [id number] 12/18/2020 02:09:31 AM [facility] Name Value Range Interpretation Code Description Data Karina rce(s) Supporting Document(s) Albumin [Mass/volume] in Serum or Plasma by Bromocresol green (BCG) dye binding method 4.1 g/dL 3.5-5.2 [facility] Bilirubin.total [Mass/volume] in Serum or Plasma 0.2 mg/dL <1.2 [facility] Bilirubin.direct [Mass/volume] in Serum or Plasma <0.3 [facility] Alkaline phosphatase [Enzymatic activity/volume] in Serum or Plasma 42 U/L 40-129 [facility] Aspartate aminotransferase [Enzymatic activity/volume] in Serum or Plasma 15 U/L <40 [facility] Alanine aminotransferase [Enzymatic activity/volume] in Seru m or Plasma 26 U/L <41 [facility] Protein [Mass/volume] in Serum or Plasma 6.7 g/dL 6.4-8.3 [facility] ID Date Data Source [id number] 12/18/2020 02:09:31 AM [facility] Name Value Range Interpretation Code Description Data Karina rce(s) Supporting Document(s) Bicarbonate [Moles/volume] in Serum 23 mmol/L 22-29 [facility] Chloride [Moles/volume] in Serum or Plasma 104 mmol/L 98-107 [facility] Creatinine [Mass/volume] in Serum or Plasma 0.92 mg/dL 0.70-1.20 [facility] Glucose [Mass/volume] in Serum or Plasma 100 mg/dL 70-140 [facility] Potassium [Moles/volume] in Serum or Plasma 3.7 mmol/L 3.4-5.1 [facility] Sodium [Moles/volume] in Serum or Plasma 139 mmol/L 136-145 [facility] Urea nitrogen [Mass/volume] in Serum or Plasma 20 mg/dL 6-20 [facility] Anion gap 3 in Serum or Plasma 12 mmol/L 8-15 [facility] Osmolality of Serum or Plasma by calculation 291 mosm/kg 275-300 [facility] Creatinine/Urea nitrogen [Mass Ratio] in Serum or Plasma 22 [facility] Calcium [Mass/volume] in Serum or Plasma 8.6 mg/dL 8.6-10.0 [facility] Glomerular filtration rate/1.73 sq M pre dicted among non-blacks [Volume Rate/Area] in Serum or Plasma by Creatinine-based formula (MDRD) >6 0 [facility] Glomerular filtration rate/1.73 sq M pre dicted among blacks [Volume Rate/Area] in Serum or Plasma by Creatinine-based formula (MDRD) >60 [facility] ID Date Data Source [id number] 12/18/2020 02:51:34 AM EDT [facility] Name Value Range Interpretation Code Description Data Karina rce(s) Supporting Document(s) Leukocytes [#/volume] in Blood by Automated count 9.9 10*3/uL 4-10 [facility] Erythrocytes [#/volume] in Blood by Automated count 4.82 10*6/uL 4.6- 6.1 [facility] Hemoglobin [Mass/volume] in Blood 13.8 g/dL 13.5-18 [facility] Hematocrit [Volume Fraction] of Blood by Automated count 40.7 % 4 1-53 L [facility] Erythrocyte mean corpuscular volume [Entitic volume] by Auto mated count 84.4 fL 80-96 [facility] Erythrocyte mean corpuscular hemoglobin [Entitic mass] by Automated count 28.6 pg 27-33 [facility] Erythrocyte mean corpuscular hemoglobin concentration [Mass/volume] by Automated [facility] 33.9 g/[facility] width [Ratio] by Automated count 13.4 % 11.5-14.5 [facility] Platelets [#/volume] in Blood by Automated count 335 10*3/uL 150-400 [facility] Differential cell count method - Blood [facility] Neutrophils/100 leukocytes in Blood by Automated count 59 % [facility] Lymphocytes/100 leukocytes in Blood by Automated count 34 % [facility] Monocytes/100 leukocytes in Blood by Automated count 2 % [facility] Eosinophils/100 leukocytes in Blood by Automated count 1 % [facility] Basophils/100 leukocytes in Blood by Automated count 1 % [facility] Neutrophils [#/volume] in Blood by Automated count 5.92 10*3/uL 1.8-7 .0 [facility] Lymphocytes [#/volume] in Blood by Automated count 3.33 10*3/uL 1.2-4 .0 [facility] Monocytes [#/volume] in Blood by Automated count 0.19 10*3/uL 0-0.8 [facility] Eosinophils [#/volume] in Blood by Automated count 0.09 10*3/uL 0-0.5 [facility] Basophils [#/volume] in Blood by Automated count 0.09 10*3/uL 0-0.2 [facility] Variant lymphocytes/100 leukocytes in Blood by Manual count 3 % [facility] Lymphocytes [#/volume] in Blood 0.28 10*3/uL 0 H [facility] Anisocytosis [Presence] in Blood by Light microscopy [facility] ID Date Data Source [id number] 12/18/2020 02:02:21 AM EDT [facility] Name Value Range Interpretation Code Description Data Karina rce(s) Supporting Document(s) Hemoglobin A1c/Hemoglobin.total in Blood by HPLC 5.2 % 4.0-6.0 [facility] (NOTE)<5.7% Average risk of diabetes (ADA)5.7-6.4% Increased risk of diabetes(ADA)>/= 6.5% Diagnostic for diabetes(ADA) Glucose mean value [Mass/volume] in Blood Estimated fr om glycated hemoglobin 103 mg/dL <126 [facility] ID Date Data Source [id number] 12/17/2020 08:49:00 PM EDT [facility] Name Value Range Interpretation Code Description Data Karina rce(s) Supporting Document(s) SARS coronavirus 2 RNA [Presence] in Res piratory specimen by [facility] with probe detection NEGATIVE [facility] This lab was ordered by [facility] a nd reported by [facility]. Procedure Social History No Information
[2021-02-21] MEDS ORDERED: GABA-1171 PO (17:13)
[2021-02-21] MEDS ORDERED: NEUR300C PO (17:13)
[2021-02-21 17:56] LABS: BASO % 0.4 % (0.0-1.0); EOS # 0.1 10^3/uL (0.0-0.5); EOS % 1.7 % (0.0-3.0); HEMOGLOBIN 14.5 g/dl (13.5-17.5); LYMPH # 1.8 10^3/uL (1.5-5.0); MEAN CORPUSCULAR HEMOGLOBIN 28.2 pg (27.0-33.0); MEAN CORPUSCULAR HGB CONC 33.7 g/dl (32.0-36.5); MEAN CORPUSCULAR VOLUME 83.5 fl (80.0-96.0); MONO # 0.4 10^3/uL (0.0-0.8); MONO % 8.3 % (2.0-8.0); NEUTROPHILS # 2.8 10^3/uL (1.5-8.5); PLATELET COUNT, AUTOMATED 285 10^3/uL (150-450); RED BLOOD COUNT 5.15 10^6/uL (4.30-6.10); WHITE BLOOD COUNT 5.2 10^3/uL (4.0-10.0)
--- NOTE | 2021-02-21 18:12 | REP ---
INDICATION: CHEST PAIN. COMPARISON: Portable chest, 12/20/2020. TECHNIQUE: Upright AP portable chest image was obtained. FINDINGS: The lungs are clear. The heart borders mediastinum and pulmonary vascular pattern normal. The upper abdominal bowel gas pattern is normal. There are no bony abnormalities. IMPRESSION: No evidence of acute cardiopulmonary pathology. <Electronically signed by Juan Jose Appiah > 02/21/21 [id number]
--- NOTE | 2021-02-21 18:16 | ECGEPIP ---
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
[2021-02-21 18:27] LABS: BLOOD UREA NITROGEN 16 MG/DL (7-18); CALCIUM LEVEL 8.8 MG/DL (8.5-10.1); CARBON DIOXIDE LEVEL 31 MEQ/L (21-32); CHLORIDE LEVEL 102 MEQ/L (98-107); CREATININE FOR GFR 1.13 MG/DL (0.70-1.30); GLOMERULAR FILTRATION RATE > 60.0 (>60); GLUCOSE, FASTING 104 MG/DL (70-100); POTASSIUM SERUM 3.9 MEQ/L (3.5-5.1); SODIUM LEVEL 137 MEQ/L (136-145)
[2021-02-21 18:29] LABS: CK-MB VALUE MASS < 1.0 NG/ML (<3.6); CPK CREATINE PHOSPHOKINASE 145 U/L (39-308); MB/CK RELATIVE INDEX 0.69 (< OR =4); TROPONIN I < 0.02 NG/ML (< 0.10)
[2021-02-21 18:53] LABS: ALBUMIN 3.7 GM/DL (3.2-5.2); ALT/SGPT 46 U/L (12-78); BILIRUBIN,DIRECT < 0.1 MG/DL (0.0-0.2); BILIRUBIN,TOTAL 0.2 MG/DL (0.2-1.0); LIPASE 56 U/L (73-393); TOTAL PROTEIN 7.4 GM/DL (6.4-8.2)
--- OUTSIDE RECORDS SUMMARY | 2021-02-21 18:54 | CCD ---
Author Author [facility] Organization [facility] Address Unknown Phone Unavailable Care Team Providers Care Assembly Mechanic Name Role Phone Zenon CURIEL JR, MD [...] is protected by Article 27-F of the [facility] Public Health law. If you continue you may have access to information: Regarding HIV / AIDS; Provided by facilities licensed or operated by the [facility] Office of Mental Health; or Provided by the [facility] Office for People With Developmental Disabilities. If such information is present, then the following [facility] mandated warning applies: This information has [...] law may result in a fine or long term sentence or both. A general authorization for the release of medical or other information is NOT sufficient authorization for further disc losure. Allergies and Adverse Reactions Type Description Substance Reaction Status Data Source(s ) Propensity to adverse reactions NO KNOWN ALLERGIES NO KNOWN ALLERGIES [facility] Family History Family Member Name Family Member Gender Family Member Status Date o f Status Description Data Source(s) Unknown Male Problem [facility] ([facility]) Encounters Encounter Providers Location Date Indications Data Source(s ) Inpatient Attender: CLEMENTE SARAVIA dmitter: CLEMENTE CURIEL JRReferrer: YOLANDARADHA PATTERSON [id number] 12/17/2020 12:00:00 AM EDT - 12/19/2020 04:22:00 PM EDT [facility] Patient discharged. Medications No Information Insurance Providers Payer name Policy type / Coverage type Policy ID Covered republican ID Covered republican's relationship to segura Policy Segura Plan Information [employer] [id number] SP [id number] Self [id number] [facility] HUMAN [id number] SP [id number] [place] Referrals Commercial [id number] Self [id number] [place] Referrals Commercial [id number] Self [id number] [facility] - O/P [id number] 18 [id number] Problems, Conditions, and Diagnoses No Information Surgeries/Procedures No Information Results ID Date Data Source [id number] 12/23/2020 01:38:10 PM EDT [facility] Name Value Range Interpretation Code Description Data Karina rce(s) Supporting Document(s) Discharge Summary [facility] [id number] [facility] [file] [id number] ID Date Data Source [id number] [facility] Range Interpretation Code Description Data Karina rce(s) Supporting Document(s) Heparin unfractionated [Units/volume] in Platelet poor plasma by Chromogenic method 0.18 [facility] Source [id number] [facility]2020 [facility]15[facility] Value Range Interpretation Code Description Data Karina rce(s) Supporting Document(s) Heparin unfractionated [Units/volume] in Platelet poor plasma by Chromogenic method 0.45 U/ml [facility] ID Date Data Source [id number] 12/19/2020 04:15:01 AM [facility] Value Range Interpretation Code Description Data Karina rce(s) Supporting Document(s) Prothrombin time (PT) 13.1 s 11.6-14.0 [facility] INR in Platelet poor plasma by Coagulation assay 1.03 [facility] Routine intensity oral anticoagulation I NR is typically 2.0-3.0. Target INR must be clinically individualized. ID Date Data Source [id number] 12/18/2020 09:05:54 PM [facility] Value Range Interpretation Code Description Data Karina rce(s) Supporting Document(s) Prothrombin time (PT) 13.5 s 11.6-14.0 [facility] INR in Platelet poor plasma by Coagulation assay 1.07 [facility] Routine intensity oral anticoagulation I NR is typically 2.0-3.0. Target INR must be clinically individualized. ID Date Data Source [id number] 12/18/2020 09:05:54 PM [facility] Value Range Interpretation Code Description Data Karina rce(s) Supporting Document(s) Heparin unfractionated [Units/volume] in Platelet poor plasma by Chromogenic method 0.59 U/ml [facility] al ID Date Data Source [id number] 12/18/2020 04:48:38 PM EDT [facility] Name Value Range Interpretation Code Description Data Karina rce(s) Supporting Document(s) History and Physical [facility] JBOHCh3vNfDSUaYl04/UZYxvFVPaq1RrQRetEPe3DErlWHXyO7PdGNK7wV0lCZS8TMjQMnDjOcOrCMPi lbm [file] AgICAgICAgICAgICAgICAgICAgICAgICAgICAgICAgICAgICAgICAgICAgICAgICAgICAgICAgICAgIC AgICAgICAgICAgICAgICAgICAgDQogICAgICAgICAgICAgICAgICAgICAgICAgICAgICAgICAgICAgIC AgICAgICAgICAgICAgICAgICAgICAgICAgICAgICAg ICAgICAgICAgICAgICAgICAgICAgICAgICAgICAgDQogICAgICAgICAgICAgICAgICAgICAgICAgICAg ICAgICAgICAgICAgICAgICAgICAgICAgICAgICAgICAgICAgICAgICAgICAgICAgICAgICAgICAgICAg ICAgICAgICAgICAgDQogICAgICAgICAgICAgICAgIC AgICAgICAgICAgICAgICAgICAgICAgICAgICAgICAgICAgICAgICAgICAgICAgICAgICAgICAgICAgIC AgICAgICAgICAgICAgICAgICAgICAgDQogICAgICAgICAgICAgICAgICAgICAgICAgICAgICAgICAgIC AgICAgICAgICAgICAgICAgICAgICAgICAgICAgICAg ICAgICAgICAgICAgICAgICAgICAgICAgICAgICAgICAgDQogICAgICAgICAgICAgICAgICAgICAgICAg ICAgICAgICAgICAgICAgICAgICAgICAgICAgICAgICAgICAgICAgICAgICAgICAgICAgICAgICAgICAg ICAgICAgICAgICAgICAgDQogICAgICAgICAgICAgIC AgICAgICAgICAgICAgICAgICAgICAgICAgICAgICAgICAgICAgICAgICAgICAgICAgICAgICAgICAgIC AgICAgICAgICAgICAgICAgICAgICAgICAgDQogICAgICAgICAgICAgICAgICAgICAgICAgICAgICAgIC AgICAgICAgICAgICAgICAgICAgICAgICAgICAgICAg ICAgICAgICAgICAgICAgICAgICAgICAgICAgICAgICAgICAgDQogICAgICAgICAgICAgICAgICAgICAg ICAgICAgICAgICAgICAgICAgICAgICAgICAgICAgICAgICAgICAgICAgICAgICAgICAgICAgICAgICAg ICAgICAgICAgICAgICAgICAgDQogICAgICAgICAgIC AgICAgICAgICAgICAgICAgICAgICAgICAgICAgICAgICAgICAgICAgICAgICAgICAgICAgICAgICAgIC IaRLXdVWCrUBDbNVLcIGUzKHFlRUMaLWHcQKJxLNw2A0jxEEVcATAqRH2gJVw4Iv1+JUwBBrAdJQD9ga NsmB0VWZ7fx6XlYYxwCQNff4ZlZNm8FH4TPCQfTQad AJ0UAFwbkm4IOEQsKOWocBIZn6jzTyFgLTN1GTYyTzueDX3DZMWsY8kuakPnEQOqLUUBTAbaKSSHGDif NPEAQHEyZNBqCdSrVLgyRM7Zh2UapGB0IGj+Hg4JKV5zh3JoGHspPYGjKU6usk9CRDmBLyIuP5EghvS4 QVNuBMGfMd5FZKAsRDXpsYNsXFGxAMFLKnHiF9KumF 74NASXUa5+KTebzlAoPnsRLdUoLLNjd2LoMWe1DD1BBMFgCKw4rALfFJGQDZT6WH1zihUzpwWiXB3jrN KfDA1VVvQyNDIuEE3lDz1iZVAoOFGiCzRiLTNEZQ4MILAqVGSqyAJzETAaPZKRCC1AIMdcGNX5JWFruk HtzBMaZLfuFM9MRWVljcAoOtpmXDDMYJh+Ya7WEB4v a8GkHTqxHaYqMI7pkl8UNFsNKjKzY3S7pQTdF2Uawn10FE4KgGD2yFQpMF7TnC9qNO6Ik7AgFRFfMhAt IUBkUPNiRJLeJEVrFlDmXA8WCOQiVhDgsLNgFDIiTfIiVVAvOLN4KKiaDV6PNLGcCMN1ZD6WRS8ZHmhs X6JHSJxFhFedKBM1FsACF01ZEMSROA0TYZMFTWsxHM W7jiIdyyDkxoqOLsZkOSKGL03DRYYQXKM+PiANCj4+SEuduyMsOsbNZjFuIVHco8AuRKf5SX7BFYOzHD rrIX6YLNBveI2oPHevVX8UZaMjHiZiOUMDJxIqH34apVCaJIq4V4HjEsXwDQJhSfqdLKIvUGgvXzQdIZ MgWyBdDQogID4+ID4+TZnsGX6TKBiwslNfOREuHl7U EBRsOZXmAU3dEWIfILEpU9T4kUiaWLTEOpSuF8yefboaUJ2kJQGeH633uBuzwgXzZRV0ZEWsPt5VYHYk KCD7ZFQjzDPyFtzfQHIVPYsvFC9KeIRdXVM0hD1dGMmiCTFwENYzP7vMRbZklNsmIA14fMrrwpDpaWXz DQo+Zb8ZDE8tm9JqOCq5xhZuIObsEUJeKRplBYTcGB JtMTXdFHU4LUK3AKWLMyWpHOMjSDOrCRbuOWXwMBAouz1ASXAjDELeMFO6FhGaSHBxQOSkLKbtOUNtUY SaKFFrGMFxHVBqBP5WDdIwBNDzIMRuIIgtKLQuPBWztr5XXYBbGSAdEKD4FbFyKENyJGNmVUosAKCgMR V3AawdXEVdYBQxYX9YNzJwYTNwIMb4XzzlDODwCKEm tb5FYWUaZEBfAha1UsGhZPImBJFwGYjsFXGaFFZwYYG9AMMgFSJdCW6TDdGsYNEgAZKnCkFsCHAuCTGe zn3QHLAnVIAnLCJ9QeClKXAqJWRaRYpiJULoXUKkAyN0HIIjONReGF1SQkEnPTHxDUKyUGbvKLTpRATn na0EPJYbZWHfLVO8BWKdBHVcPLObXZwtOCDoPKP8QT z0BSQlMPReMS1JVzWnWKUaOGE3BHjmRIYzWAGgkm7RKOJwDKQsLeEnWGXnKOBtJLLwLXgiVUQuKZO1MT KzZVYaXHUrHD8FXjWySAIiOAepJTipMGThXCDxbg9PQUJvNSHyJon4YHOeTWWgCGCoKDfcTVUxIML7JK Y3TRIhMLVsWS6LJaAyLESvXQxoYMemTNIuIZOdwu9X VJLdJANqBIofApReTFQgOQJbUEblDQYhTWBjHRAiEEGaJFDeIW2XTqJjJGGgUeLbQfNdIGFpDRHkex6K YSUuONEhATS5MLOpLSDeNMVbVMprDHRhSQRoMrH3XNLiGLTzLM6WWsFwWCBwQpCnGxKkCDIwYXRslq6J MDAwMDAzMjUxOSAwMDAwMCBuDQowMDAwMDMyNTkwID MqBYMnZE3WJaPvIRGxXaY1KZhuSNMeFRZgww1OlVIrvYapjw5PKYwTKm6DnRbxOSEbBCtpHz9pxBMrKS AjUWRHMw8YsyQjRJWtWJFTSAyhXONuFEDtKnvrQogjG7L0MCCcDDZkH1QhUBwyEGNuIxQhVxYgHgX8RN GfJ4IoHPOhLHzrWUO3QtBgMjDmIQH4USU1ZNPaVEW+ CZ4kEUt+Si6Bz2KhniB0lbGwYTxhTsJ9FY5YTZUMN7BUYc== ID Date Data Source [id number] [facility] Name Value Range Interpretation Code Description Data Karina rce(s) Supporting Document(s) Cardiactroponin T pnl SerPlHS 70 ng/L <22 H [facility] ID Date Data Source [id number] 12/18[facility]2020 01:33[facility] Name Value Range Interpretation Code Description Data Karina rce(s) Supporting Document(s) Heparin unfractionated [Units/volume] in Platelet poor plasma by Chromogenic method 0.19 U/ml [facility] ID Date Data Source [id number] 12/18/2020 10:01:48 [facility] Value Range Interpretation Code Description Data Karina rce(s) Supporting Document(s) EKG [facility] ZFJSOv6fBcWQRrHed0CtJvYbUGHsBK5yaqd6P4T5nNHhH4VzzFLuo3xfT4WxY4UgOSSyHWXOOE9RlHUj jb2 [file] /dv/4mP3w/f+2Bdfvv/t6ye8++wf/4sPSdsfevvq/buvP//e9Q6sP769+/TrTz//inez//M27n/7TKr11 /9Nnf/rh37/78x+//cPbv/5k72xxet/9N3/+87fffP/3b7/88lolru9+7V//m8S//o0sx140b17Y/cWi YW1WJmEqr/s7e60L43kxp2+t+h//+Iu/bB7w6KGjqc A/el561N1+HtyuX/4uxQvv5SKiP2m/MICudjXnq/OQv1yI7EgdwkoQr2QkvL88eRpb30+4Mu4j4c+8// sgb30xx2O3ipeif2//27gqZ5415mZt/eb9p//0o1Dbj/7tUPzL+/+K2MM1/3WtCz+nxy+/IsOrgskBB0 OMNrbTsm10b9/+w9ufv/nrtz/96iqp5T4A1gby+iMP 0PIeTIb+9Ns3+NX7t+9++Ou3f/7ff/Pj8+s3nz/++ahyuyV1v647ya39/Ye3P/zH67d/99wgelg8k2fy T74+v+LB/vnjL/754++Xe10xHenCeQ/O5g0kHWmWrbYbpM/85Mc/bWatjN2j/4uf/xqCcrSe5e//+PbN //e5Y1689JcVJhInh229/nn3SBTSdrq3pM1qi//6dz /59D4Ov/3m+x8d3/kj9LNv/uP33/zlu29++Mn/b6ZH++6Hn/7/cyVN//7f/vZ/Hwrf/+lPf/zkul/Sfv KRHe9v/jQ7Q0S9Ev90B6hu//7Ax29//z9/+O73r5/5gTni76n2L00kYCDaa6/56+us+8Mnn/589CvMD6 36+Rd/u9/1wF6Bf/cj57826nHJY1um1v+i//9H7tcO fRt1Y/zqm//x7Zu8/fkf10jNBMhi09wa3q0q5LZc7w3QkZm502qDa+Ez4z0PmH/f/+rd+0/eVmOCVXbw 088++/J3X7w+2+4KB+Lxy8N92E4ZnXV53MnwuxOolNBsBP3CIX2od5ThTtZ1FAFmj3ClEQbwBMr7eRXg WXhwodEfc8ElsamrJ8Ujl3PzAxXwBZQbDmKxUsi9HY MiFfR2lGSiEqAeJPHtD2YkGSBxEmG0TqDaMNKZBM0MHGVrgxBaOcEfDVT+KqIgSE9eedjoDENvk7PvSI fiVPgnAXJtX7I7sYxrWAIpC1SekN94YUOkC6GgfcL3AAK5WRMzPeOoFAWlyINlEWJdOUU+JpEpZT6iqg mzOTTip8KxHLbiCQL8vF4sFKjWEMXISIuPNBtlIaZ6 k15pgoCHKHFoSFKeWN8OgiHyoZnwnyTllNDaCRF7WwMtCEP1LQVbPAVkZIRBVJQeTNTnNGSfVMObI9Bf fKtwLGtNCUWJOJgNTUzbOgVhy0H6IRRwpaQZGEZKIWrfIoOCL44oYey7LPN1LEgcZ5J3QndcZ9UoMI1L O8YwZUCgKJIYFVKwapIqTQ5SxuIheN3cSGcNJRZGXL vWLGkrGcA8v30reuXNUTXrFAWrLFqyJCEgNBIvPZUlMXFqDLUeMPWzZGIhTQ0ZN0WtONRiLICIYZT7r7 GbYAQlxskeihufJg0tijLyZmz+ZimhMBSwq4AtJDmyN8Z4vJAhB7WqS2XdCK1HlOBqXOtsSFCzSYZzRB JrY394lxEkFY7+XD1hy6IvThrmNPMKBAWcIHYeWOXd ALN7ZbMnZBDgADYwNMBnEiN9AySySbIZMCHeZTQ0NsP7FnUuSNGrNUOdANnqQCWoLPQlUYW2XXWzHIFy VB2oSiEsHMSjJaJ5ZRQeQXUyWTJzdyIZFSZhZVQbKWCkDPE9PXVhVSJlXPjmTOVqPYRgQDU4VXApWHXo XH8mIpFcLWHmCLRwKxxlRDGyCPXrqzURTDBpJILgOV H4IeDwPAFnNJDmRGelTTTsJSAuGsp9GMQqMLEzTC9oEpVmWPPtHDR1GHjyPFBiUVYlrkNTOMOgYFFrDP LwXbWbQUMjURRpXCnaHWXrIJApBwCzHVVdNJEkHN2uYlXpWABsPNG8NCVoSVWeWJLcgfZSZKTtTJBwOL z3OTXsIVIdIGHpLMqyULVjPDBeYEC9NYMoLJOrQD2c QwRmGTGbFMQhDAStZHFiUOCflqJTPJFfZSGeXXN6SVZyGPAuEGWbCGdlHRMhVVLsXrj4IJNtOLJfWR9t HpGoRMCvGUL1YMToCREwERTwboBURDFrCVM5GpvtRXSbNCAaZFOeJQtiJPQiJTCqJcL8OJWtTLWfNR6u QgWjATEaCFW6IwTlXPMfQHFtahVWWBHyCNMhJEN8Ys QqPSOjTWUoKRrzATSiZSWnKCCvAXK5NQI4OTVfXcYmHIanFEIIADaZZ4UouvXnUdCFB7dfEi7gNfAiVV HSO4Rsi2FiNTOyWVKEJl2+EcB5UPZ6hAQtLzs1YqBmQeaeRFBRJa== ID Date Data Source [id number] 12/18/2020 04:38:31 AM EDT [facility] Name Value Range Interpretation Code Description Data Karina rce(s) Supporting Document(s) Cardiactroponin T pnl SerPlHS 89 ng/L <22 H [facility] ID Date Data Source [id number] 12/[facility]2020 04:19[facility] Name Value Range Interpretation Code Description Data Karina rce(s) Supporting Document(s) Leukocytes [#/volume] in Blood by Automated count 11.5 10*3/uL 4-10 H [facility] Erythrocytes [#/volume] in Blood by Automated count 5.03 10*6/uL 4.6- 6.1 [facility] Hemoglobin [Mass/volume] in Blood 14.4 g/dL 13.5-18 [facility] Hematocrit [Volume Fraction] of Blood by Automated count 42.6 % 4 1-53 [facility] Erythrocyte mean corpuscular volume [Entitic volume] by Auto mated count 84.6 fL 80-96 [facility] Erythrocyte mean corpuscular hemoglobin [Entitic mass] by Automated count 28.5 pg 27-33 [facility] Erythrocyte mean corpuscular hemoglobin concentration [Mass/volume] by Automated count 33.7 g/dL 32.0-36.0 [facility] Erythrocyte distribution width [Ratio] by Automated count 13.5 % 11.5-14.5 [facility] Platelets [#/volume] in Blood by Automated count 355 10*3/uL 150-400 [facility] ID Date Data Source [id number] 12/18/2020 04:19:35 AM EDT [facility] Value Range Interpretation Code Description Data Karina rce(s) Supporting Document(s) Prothrombin time (PT) 13.0 s 11.6-14.0 [facility] INR in Platelet poor plasma by Coagulation assay 1.02 [facility] Routine intensity oral anticoagulation I NR is typically 2.0-3.0. Target INR must be clinically individualized. ID Date Data Source [id number] 12/18/2020 04:19:35 AM EDT [facility] Value Range Interpretation Code Description Data Karina rce(s) Supporting Document(s) Heparin unfractionated [Units/volume] in Platelet poor plasma by Chromogenic method [facility] al ID Date Data Source [id number] 12/18/2020 01:14:00 AM EDT [facility] Name Value Range Interpretation Code Description Data Karina rce(s) Supporting Document(s) SARS-CoV-2 RNA 2019 nCoV Real-Time RT-PCR: NOT DETECTED [facility] This lab was ordered by [facility] and reported by [facility]. 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 [facility] Patient has symptoms related to condition [facility] When did you start to experience these symptoms [Date and time] [Phen X] [facility] Patient was hospitalized because of this condition [facility] patient was admitted to ICU for [facility] Patient resides in a congregate care setting [facility] status [facility] ID Date Data Source [id number] 12/18/2020 02:09:31 AM [facility] Value Range Interpretation Code Description Data Karina rce(s) Supporting Document(s) Cardiactroponin T pnl SerPlHS 97 ng/L <22 H [facility] ID Date Data Source [id number] 12/18/2020 02:09:31 AM [facility] Value Range Interpretation Code Description Data Karina rce(s) Supporting Document(s) Magnesium [Mass/volume] in Serum or Plasma 2.2 mg/dL 1.6-2.6 [facility] ID Date Data Source [id number] 12/18/2020 02:09:31 AM [facility] Value Range Interpretation Code Description Data Karina rce(s) Supporting Document(s) Phosphate [Mass/volume] in Serum or Plasma 4.6 mg/dL 2.5-4.5 H [facility] ID Date Data Source [id number] 12/18/2020 02:09:31 AM [facility] Value Range Interpretation Code Description Data Karina rce(s) Supporting Document(s) Cholesterol [Mass/volume] in Serum or Plasma 166 mg/dL <200 [facility] Triglyceride [Mass/volume] in Serum or Plasma 144 mg/dL <150 [facility] Cholesterol in HDL [Mass/volume] in Serum or Plasma 40 mg/dL >40 L [facility] Cholesterol in LDL [Mass/volume] in Serum or Plasma by calcu lation 97 mg/dL <100 [facility] Cholesterol in VLDL [Mass/volume] in Serum or Plasma by calc ulation 29 mg/dl 16-42 [facility] Cholesterol non HDL [Mass/volume] in Serum or Plasma 126 mg/dL <130 [facility] ID Date Data Source [id number] 12/18/2020 02:09:31 AM [facility] Name Value Range Interpretation Code Description Data Karina rce(s) Supporting Document(s) Albumin [Mass/volume] in Serum or Plasma by Bromocresol green (BCG) dye binding method 4.1 g/dL 3.5-5.2 [facility] al Bilirubin.total [Mass/volume] in Serum or Plasma 0.2 mg/dL <1.2 [facility] Bilirubin.direct [Mass/volume] in Serum or Plasma <0.3 [facility] Alkaline phosphatase [Enzymatic activity/volume] in Serum or Plasma 42 U/L 40-129 [facility] Aspartate aminotransferase [Enzymatic activity/volume] in Serum or Plasma 15 U/L <40 [facility] Alanine aminotransferase [Enzymatic activity/volume] in Seru m or Plasma 26 U/L <41 [facility] Protein [Mass/volume] in Serum or Plasma 6.7 g/dL 6.4-8.3 [facility] ID Date Data Source [id number] 12/18/2020 02:09:31 AM [facility] Name Value Range Interpretation Code Description Data Karina rce(s) Supporting Document(s) Bicarbonate [Moles/volume] in Serum 23 mmol/L 22-29 [facility] Chloride [Moles/volume] in Serum or Plasma 104 mmol/L 98-107 [facility] Creatinine [Mass/volume] in Serum or Plasma 0.92 mg/dL 0.70-1.20 [facility] Glucose [Mass/volume] in Serum or Plasma 100 mg/dL 70-140 [facility] Potassium [Moles/volume] in Serum or Plasma 3.7 mmol/L 3.4-5.1 [facility] Sodium [Moles/volume] in Serum or Plasma 139 mmol/L 136-145 [facility] Urea nitrogen [Mass/volume] in Serum or Plasma 20 mg/dL 6-20 [facility] Anion gap 3 in Serum or Plasma 12 mmol/L 8-15 [facility] Osmolality of Serum or Plasma by calculation 291 mosm/kg 275-300 [facility] Creatinine/Urea nitrogen [Mass Ratio] in Serum or Plasma 22 [facility] Calcium [Mass/volume] in Serum or Plasma 8.6 mg/dL 8.6-10.0 [facility] Glomerular filtration rate/1.73 sq M pre dicted among non-blacks [Volume Rate/Area] in Serum or Plasma by Creatinine-based formula (MDRD) >6 0 [facility] Glomerular filtration rate/1.73 sq M pre dicted among blacks [Volume Rate/Area] in Serum or Plasma by Creatinine-based formula (MDRD) >60 [facility] ID Date Data Source [id number] 12/18/2020 02:51:34 AM EDT [facility] Name Value Range Interpretation Code Description Data Karina rce(s) Supporting Document(s) Leukocytes [#/volume] in Blood by Automated count 9.9 10*3/uL 4-10 [facility] Erythrocytes [#/volume] in Blood by Automated count 4.82 10*6/uL 4.6- 6.1 [facility] Hemoglobin [Mass/volume] in Blood 13.8 g/dL 13.5-18 [facility] Hematocrit [Volume Fraction] of Blood by Automated count 40.7 % 4 1-53 L [facility] Erythrocyte mean corpuscular volume [Entitic volume] by Auto mated count 84.4 fL 80-96 [facility] Erythrocyte mean corpuscular hemoglobin [Entitic mass] by Automated count 28.6 pg 27-33 [facility] Erythrocyte mean corpuscular hemoglobin concentration [Mass/volume] by Automated count 33.9 g/dL 32.0-36.0 [facility] distribution width [Ratio] by Automated count 13.4 % 11.5-14.5 [facility] Platelets [#/volume] in Blood by Automated count 335 10*3/uL 150-400 [facility] Differential cell count method - Blood [facility] Neutrophils/100 leukocytes in Blood by Automated count 59 % [facility] Lymphocytes/100 leukocytes in Blood by Automated count 34 % [facility] Monocytes/100 leukocytes in Blood by Automated count 2 % [facility] Eosinophils/100 leukocytes in Blood by Automated count 1 % [facility] Basophils/100 leukocytes in Blood by Automated count 1 % [facility] Neutrophils [#/volume] in Blood by Automated count 5.92 10*3/uL 1.8-7 .0 [facility] Lymphocytes [#/volume] in Blood by Automated count 3.33 10*3/uL 1.2-4 .0 [facility] Monocytes [#/volume] in Blood by Automated count 0.19 10*3/uL 0-0.8 [facility] Eosinophils [#/volume] in Blood by Automated count 0.09 10*3/uL 0-0.5 [facility] Basophils [#/volume] in Blood by Automated count 0.09 10*3/uL 0-0.2 [facility] Variant lymphocytes/100 leukocytes in Blood by Manual count 3 % [facility] Lymphocytes [#/volume] in Blood 0.28 10*3/uL 0 H [facility] Anisocytosis [Presence] in Blood by Light microscopy [facility] ID Date Data Source [id number] 12/18/2020 02:02:21 AM EDT [facility] Name Value Range Interpretation Code Description Data Karina rce(s) Supporting Document(s) Hemoglobin A1c/Hemoglobin.total in Blood by HPLC 5.2 % 4.0-6.0 [facility] (NOTE)<5.7% Average risk of diabetes (ADA)5.7-6.4% Increased risk of diabetes(ADA)>/= 6.5% Diagnostic for diabetes(ADA) Glucose mean value [Mass/volume] in Blood Estimated fr om glycated hemoglobin 103 mg/dL <126 [facility] ID Date Data Source [id number] 12/17/2020 08:49:00 PM EDT [facility] Name Value Range Interpretation Code Description Data Karina rce(s) Supporting Document(s) SARS coronavirus 2 RNA [Presence] in Res piratory specimen by [place] with probe detection NEGATIVE [facility] This lab was ordered by [facility] a nd reported by [facility]. Procedure Social History No Information
[2021-02-21 23:26] LABS: CK-MB VALUE MASS 1.2 NG/ML (<3.6); CPK CREATINE PHOSPHOKINASE 116 U/L (39-308); MB/CK RELATIVE INDEX 1.03 (< OR =4); TROPONIN I < 0.02 NG/ML (< 0.10)
[2021-02-21 23:45] VITALS: BP 125/68
--- NOTE | 2021-02-22 04:40 | ECGEPIP ---
[facility] - ED Test Date: 2021-02-21 Pat Name: YAMINI PARADA Department: Room: - Gender: Male Fold Skiver: ARLEEN : 1975 Requested By: MONICA Godfrey Order Number: [id number] Reading MD: Ramiro Yanez Measurements Intervals [place] Rate: 79 P: 53 MO: 164 QRS: 30 QRSD: 92 T: 41 QT: 382 QTc: 438 Interpretive Statements SIMILAR TO PRIOR ON SAME DATE Normal sinus rhythm Electronically Signed on 02-22-2021 4:40:26 EST by Ramiro Yanez
== END 2021-02-22 00:04 | disposition home or self-care (01) ==
LOC: M ED 17:00
DX: U07.1 COVID-19 (principal); R07.9 Chest pain, unspecified; I25.2 Old myocardial infarction; F41.9 Anxiety disorder, unspecified; Z79.899 Other long term (current) drug therapy